=== PATIENT | male | born 1985 | race Caucasian/White ===

== ENCOUNTER 2017-05-31 14:00 | Emergency (ER) | payer MEDICAID, OTHER ==
[~2017-05-31] VITALS: Ht 177.8 cm; Wt 60.2 kg
[~2017-05-31 14:00] MED LIST: PANT40TA5 PO; SUCR1TAB PO; TRAM50TA2 PO
[2017-05-31] MEDS ORDERED: SODIUM CHLORIDE 0.9% 1,000 ML IV ONE (14:14)
[2017-05-31] MEDS ORDERED: MORPHINE SULFATE 4 MG/ML, 1ML IVPush PRN (14:30)
[2017-05-31] MEDS ORDERED: SODIUM CHLORIDE 0.9% 1,000ML IVBOLUS ONE (14:30)
[2017-05-31] MEDS ORDERED: FAMOTIDINE 20 MG/2 ML IVP ONE (14:30)
[2017-05-31] MEDS ORDERED: ONDANSETRON 2MG/ML, 2ML IVPush ONE (14:30)
[2017-05-31 14:44] LABS: BLOOD UREA NITROGEN 9 mg/dL (7-18)
[2017-05-31 14:48] LABS: ASPARTATE AMINO TRANSFERASE 16 U/L (15-37)
[2017-05-31] MEDS ORDERED: FAMOTIDINE 20 MG/2 ML ONE (15:44)
[2017-05-31] MEDS ORDERED: MORPHINE SULFATE 4 MG/ML, 1ML ONE (15:44)
[2017-05-31] MEDS ORDERED: ONDANSETRON 2MG/ML, 2ML ONE (15:44)
[2017-05-31 17:16] VITALS: BP 136/93
== END 2017-05-31 17:20 | disposition home or self-care (01) ==
LOC: ED 17:03
DX: R10.11 Right upper quadrant pain (principal)
CPT/HCPCS: 36415; 76700; 80053; 81003; 83690; 85025; 96361; 96374; 96375; 99285; J2405; J7030; S0028

== ENCOUNTER 2017-06-04 13:15 | Emergency (ER) | payer OTHER ==
[~2017-06-04] VITALS: Ht 177.8 cm; Wt 61.1 kg
[2017-06-04] MEDS ORDERED: SODIUM CHLORIDE FLUSH 10ML SYR IVF ONE (14:00)
[2017-06-04] MEDS ORDERED: SODIUM CHLORIDE 0.9% 1,000ML IVBOLUS ONE (14:00)
[2017-06-04] MEDS ORDERED: FAMOTIDINE 20 MG/2 ML IVP ONE (14:00)
[2017-06-04] MEDS ORDERED: MORPHINE SULFATE 4 MG/ML, 1ML IVPush PRN (14:00)
[2017-06-04] MEDS ORDERED: METOCLOPRAMIDE 5 MG/ML, 2ML IVPush ONE (14:00)
[2017-06-04] MEDS ORDERED: FAMOTIDINE 20 MG/2 ML ONE (14:11)
[2017-06-04] MEDS ORDERED: MORPHINE SULFATE 4 MG/ML, 1ML ONE (14:11)
[2017-06-04] MEDS ORDERED: ONDANSETRON 2MG/ML, 2ML ONE (14:11)
[2017-06-04] MEDS ORDERED: METOCLOPRAMIDE 5 MG/ML, 2ML ONE (14:11)
[2017-06-04 14:13] LABS: ASPARTATE AMINO TRANSFERASE 17 U/L (15-37); BLOOD UREA NITROGEN 8 mg/dL (7-18)
[2017-06-04] MEDS ORDERED: ONDANSETRON 2MG/ML, 2ML IVPush ONE (14:30)
[2017-06-04] MEDS ORDERED: morphine SULFATE 10 MG/ML, 1ML IVPush ONE (14:30)
[2017-06-04 15:09] VITALS: BP 146/93
== END 2017-06-04 15:13 | disposition home or self-care (01) ==
LOC: ED 15:07
DX: K80.50 Calculus of bile duct without cholangitis or cholecystitis without obstruction (principal); F17.210 Nicotine dependence, cigarettes, uncomplicated; Y04.1XXA Assault by human bite, initial encounter
CPT/HCPCS: 36415; 76700; 80053; 83690; 85025; 96374; 96375; 99285; J2405; J2765; J7030; S0028

== ENCOUNTER 2017-11-03 11:24 | Emergency (ER) | payer MEDICAID, OTHER ==
[~2017-11-03] VITALS: Ht 175.3 cm; Wt 60.7 kg
[2017-11-03 11:28] VITALS: BP 126/87
[2017-11-03] MEDS ORDERED: SODIUM CHLORIDE 0.9% 1,000 ML IV ONE (12:32)
[2017-11-03] MEDS ORDERED: METOCLOPRAMIDE 5 MG/ML, 2ML ONE (12:44)
[2017-11-03] MEDS ORDERED: FAMOTIDINE 20 MG/2 ML ONE (12:46)
[2017-11-03] MEDS ORDERED: SODIUM CHLORIDE 0.9% 1,000ML IVBOLUS ONE (13:00)
[2017-11-03] MEDS ORDERED: METOCLOPRAMIDE 5 MG/ML, 2ML IVPush ONE (13:00)
[2017-11-03] MEDS ORDERED: SODIUM CHLORIDE FLUSH 10ML SYR IVF ONE (13:00)
[2017-11-03] MEDS ORDERED: FAMOTIDINE 20 MG/2 ML IVP ONE (13:00)
[2017-11-03 13:05] LABS: ASPARTATE AMINO TRANSFERASE 14 U/L (15-37); BLOOD UREA NITROGEN 16 mg/dL (7-18)
[2017-11-03 13:06] LABS: HEMATOCRIT 44.1 % (39.2-51.8); HEMOGLOBIN 15.4 g/dL (13.7-18.0); WHITE BLOOD COUNT 7.3 x10^3/uL (3.4-10)
== END 2017-11-03 15:10 | disposition home or self-care (01) ==
LOC: ED 14:27
DX: G89.29 Other chronic pain (principal); R10.13 Epigastric pain; R11.2 Nausea with vomiting, unspecified; F17.200 Nicotine dependence, unspecified, uncomplicated
CPT/HCPCS: 36415; 74020; 80053; 83690; 85025; 96361; 96374; 96375; 99285; J2765; J7030; S0028